=== PATIENT | female | born 2005 | race Caucasian/White ===

== ENCOUNTER 2024-01-14 23:56 | Emergency (ER) | payer OTHER, SELFPAY ==
[2024-01-15 00:20] VITALS: BP 127/80
[2024-01-15 01:44] VITALS: BP 119/70
--- NOTE | 2024-01-15 02:19 | ED.GENMED ---
History of Present Illness
General
Chief Complaint: Abdominal Pain
Source: patient
Exam Limitations: none
Time Seen by Provider: 01/15/24 01:56
Travel History
Have you had any contact with someone who has COVID-19?: No
Do you have any symptoms of coronavirus? Fever > 100 degrees, chills, cough, shortness of breath, sore throat, loss of taste or smell, muscle aches, or headache?: No
History of Present Illness
History of Present Illness:
See MDM
Past History
Past History
ED Past Medical History: None
ED Past Surgical History: None
Social History
Tobacco: Non-smoker
Alcohol: None
Phy Exam
Physical Exam
Physical Exam:
See MDM
Course
Vital Signs
Initial and Last Documented VS:
Initial Vital Signs
Temp Pulse Resp BP Pulse Ox
98.8 F 63 18 127/80 99
01/15/24 00:20 01/15/24 00:20 01/15/24 00:20 01/15/24 00:20 01/15/24 00:20
Last Documented Vital Signs
Temp Pulse Resp BP Pulse Ox
98.8 F 66 18 119/70 99
01/15/24 00:20 01/15/24 01:44 01/15/24 00:20 01/15/24 01:44 01/15/24 01:44
MDM/Problems Addressed
Differential Diagnosis Includes:
HPI and MDM Narrative:
18-year-old female presenting with resolving upper abdominal pain. This occurred soon after eating fast food. Patient does acknowledge that this has been an ongoing issue after she eats. On my evaluation, patient feeling better. She denies a
history of gastritis or alcohol abuse. I did discuss with the patient that it would be beneficial to obtain basic blood work, urine and right upper quadrant ultrasound. Patient acknowledges this but states that she has to leave to catch
a flight.
Before patient left, I did a bedside ultrasound. She has multiple gallstones but no evidence of acute calculus cholecystitis. There is no pericholecystic fluid and no Aaron sign.
Although symptomatic cholelithiasis is the likely diagnosis, we discussed alternative diagnoses such as colitis versus pancreatitis versus gastritis etc. She understands this and feels comfortable going home. We discussed outpatient surgical
evaluation
Physical exam
General: Well appearing and non-toxic
HEENT: protecting airway
Neck: appears supple
CV: No evidence of cyanosis
Resp: No accessory muscle use
Abd: Non-distended. Mild right upper quadrant tenderness. No rebound
Extremities: No deformities
Neuro: alert
Psych: Normal affect
Skin: Intact
Problems Addressed including Acute and Chronic Conditions affecting care:
1. Symptomatic cholelithiasis
Acuity: acute
Prognosis: stable
Details: No evidence of acute cholecystitis from bedside ultrasound. We discussed outpatient surgical evaluation and discussed avoiding large fatty meals
Differential Diagnosis (but not limited to): Symptomatic cholelithiasis, acute cholecystitis, pancreatitis, gastritis,
Testing considered: Blood work and official right upper quadrant ultrasound
Drug therapy (if applicable): OTC meds, please see d/c instruction regarding Rx drugs
Amount and/or Complexity of Data Reviewed
Clinical info obtained from: Patient
External data reviewed: N/A
Labs I independently reviewed (but not limited to): N/A
Radiology: N/A
Pulse Ox: not hypoxic
EKG independently reviewed: N/A
Assistant Controller: N/A
Critical Care: N/A
Risk of Complication:
Social Determinants of health: Good social support
Discussed with other providers: N/A
Escalation of Care includes Admit/Obs: After being observed in the Emergency Department, pt stable for discharge.
Occasional wrong word or 'sound a like' substitutions may have occurred due to the inherent limitations of voice recognition software. Read the chart carefully and recognize, using context, where substitutions have occurred.
*Critical Care Note
Total Time (30-74mins, 75-104mins- exclusive of procedures): Not Applicable
ED Attending Note
-
Portions of this chart may have been created with voice recognition software.� Occasional wrong word or��sound alike� substitutions may have occurred due to the inherent limitations of voice recognition software.
Discharge Plan
Departure
Patient Disposition: Home (Routine Discharge)
Date of Disposition: 01/15/24
Time of Disposition: 02:20
Patient with high blood pressure during this ER visit?: No
Discharge Problem:
Symptomatic cholelithiasis
Instructions: Gallstones ED
Referrals:
Fred Salinas MD [Active] -
UNKNOWN - PT DOES,NOT KNOW [Family Provider] -
Activity Restrictions/Additional Instructions:
As we discussed, your symptoms are likely related to the gallstones we saw on the bedside ultrasound. Currently, there is no ultrasound evidence that your gallbladder is infected. Please avoid large fatty foods. Your gallbladder should be
evaluated by a surgeon. If symptoms persist, you will likely need your gallbladder out.
Please return for any worsening symptoms.
You may return at any time if you have further concerns.
Please follow up with your doctor at the first available appointment, preferably this week.
Thank you for choosing [facility].
Interventions
Interventions:
*Risk Screen - Suicide Last Done: 01/15/24 01:27
*General Assessment Last Done: 01/15/24 01:27
*Neglect/Abuse Screening Last Done: 01/15/24 01:27
ED- Fall Risk Assessment Last Done: 01/15/24 01:27
MF-Uecrhe-Yngskjgast Assessment Last Done: 01/15/24 01:27
== END 2024-01-15 02:45 | disposition home or self-care (01) ==
LOC: EMR 23:56
PROVIDERS: EMERGENCY PHYSICIAN Student in an Organized Health Care Education/Training Program
DX: K80.20 Calculus of gallbladder without cholecystitis without obstruction (principal)
CPT/HCPCS: 99284

== ENCOUNTER 2024-09-19 19:42 | Emergency (ER) | payer OTHER, SELFPAY ==
[2024-09-19 19:59] LABS: % Basophils 0.6 % (0-2); % Eosinophils 6.1 % (0-6); % Immature Granulocytes 0.3 % (0-0.5); % Lymphocytes 44.4 % (20.5-51.1); % Monocytes 7.9 % (1.7-9.3); % Neutrophils 40.7 % (42.2-75.2); Absolute Basophils 0.1 10^3/uL (0-0.2); Absolute Eosinophils 0.6 10^3/uL (0-0.7); Absolute Lymphocytes 4.1 10^3/uL (1.2-3.4); Absolute Monocytes 0.7 10^3/uL (0.1-0.6); Absolute Neutrophils 3.8 10^3/uL (1.4-6.5); Hemoglobin 15.5 g/dL (12.0-16.0); Mean Corpuscular Hgb 30.8 pg (27.0-31.0); Mean Corpuscular Volume 85.5 fL (81.0-99.0); Mean Platelet Volume 9.8 fL (7.4-10.4); Nucleated Red Blood Cells % 0 %; Platelet Count 298 10^3/uL (130-400); Red Blood Cell Count 5.03 10^6/uL (4.20-5.40); Red Cell Dist. Width 12.2 % (11.5-14.5); White Blood Cell Count 9.3 10^3/uL (4.8-10.8)
[2024-09-19 20:19] LABS: HCG, Serum Qualitative Screen Negative
[2024-09-19 20:30] LABS: ALT (SGPT) 43 U/L (0-35); AST (SGOT) 46 U/L (14-36); Albumin 4.5 g/dl (3.5-5.0); Alkaline Phosphatase 62 U/L (38-126); Blood Urea Nitrogen 14 mg/dl (7-17); Calcium 10.1 mg/dl (8.4-10.2); Carbon Dioxide 25 mmol/L (22-30); Chloride 104 mmol/L (98-107); Glucose 96 mg/dl (70-99); Lipase 68 U/L (23-300); Potassium 4.8 mmol/L (3.5-5.1); Sodium 143 mmol/L (135-145); Total Bilirubin 0.2 mg/dl (0.2-1.3); Total Protein 7.2 g/dl (6.3-8.2); eGFR > 60.00
--- NOTE | 2024-09-19 20:56 | ED.GENMED ---
History of Present Illness
<Kristie Porter PA-C - Last Filed: 09/20/24 11:47>
General
Chief Complaint: Abdominal Pain
Source: patient
Time Seen by Provider: 09/19/24 20:41
History of Present Illness
History of Present Illness:
19yoF with a history of gallstones presenting with her significant other for evaluation of abdominal pain. She reports pain primarily in her epigastric region for the past 3 days. Pain is constant and is describes as a dull aching pain. Pain
radiates to the back and to the lower abdomen. She has tried Tylenol and heat without much improvement. Nothing seems to make the pain better or worse. Specifically, she denies any pain with eating. She is otherwise asymptomatic and denies any
fevers, chills, nausea, vomiting, diarrhea, vaginal bleeding, vaginal discharge. Of note, patient was seen in ED in January 2024 and she was diagnosed with gallstones. She has not followed up with general surgery. No previous abdominal surgeries. LMP
1 week ago.
Past History
<Kristie Porter PA-C - Last Filed: 09/20/24 11:47>
Past History
ED Past Medical History: None
ED Past Surgical History: None
Social History
Tobacco: Non-smoker
Alcohol: None
Phy Exam
<Kristie Porter PA-C - Last Filed: 09/20/24 11:47>
General Physical Exam
General Presentation: well appearing and no apparent distress
General age: appears stated age
General Skin: warm and dry
General Habitus: normal
General Mental: alert
ENT Exam
ENT Exam: normocephalic
Cardiovascular Exam
Cardiovascular Exam: regular rate/rhythm and no murmur
Pulmonary Exam
Pulmonary Exam: lungs clear, no respiratory distress, no rales, no crackles, no rhonchi and no wheezing
Gastrointestinal Exam
Gastrointestinal Exam: soft, non distended and other (+Generalized abdominal tenderness. No CVA tenderness bilaterally. Abdomen soft, non-distended. No rebound or guarding. Negative Aaron's sign.)
Neurological Exam
Neurological Exam: alert
Masha Coma Scale
Eye Opening: Spontaneous
Verbal Response: Oriented
Motor Response: Obeys Commands
GCS Total Score: 15
Skin Exam
Skin Exam: normal color and warm/dry
Psychiatric Exam
Psychiatric Exam: normal mood/affect
Course
<Kristie Porter PA-C - Last Filed: 09/20/24 11:47>
Orders/Labs/Results
Orders:
Orders
09/19/24 19:49
IV Insert/Care/Rem.- Treatment PRN
Test Result ONCE
09/19/24 19:52
US Abdomen Complete/Upper Urgent
Comment:
Reason For Exam: known gallstones upper abd. pain
09/19/24 19:53
Complete Blood Count/With Diff Urgent
Comprehensive Metabolic Panel Urgent
HCG, Serum Qualitative Screen Urgent
Comment: Notify provider if positive test present
Lipase Urgent
09/19/24 21:26
CT Abd/pelvis W Iv Cont Urgent
Comment:
Reason For Exam: Generalized abd pain
09/19/24 21:32
Ketorolac [Toradol] 15 mg IV NOW STA
Abnormal Lab Results
09/19/24
19:53
Absolute Lymphs (auto) 4.1 H 10^3/uL
(1.2-3.4)
Absolute Monos (auto) 0.7 H 10^3/uL
(0.1-0.6)
Neutrophils % 40.7 L %
(42.2-75.2)
Eosinophils % 6.1 H %
(0-6)
AST 46 H U/L
(14-36)
ALT 43 H U/L
(0-35)
09/19/24 19:53
09/19/24 19:53
Vital Signs
Initial and Last Documented VS:
Initial Vital Signs
Resp
18
09/19/24 21:49
Last Documented Vital Signs
Temp Pulse Resp BP Pulse Ox
98.5 F 81 18 126/80 97
09/19/24 22:32 09/19/24 22:32 09/19/24 22:32 09/19/24 22:32 09/19/24 22:32
<Juvencio Dozier, DO - Last Filed: 09/19/24 22:59>
Orders/Labs/Results
Orders:
Orders
09/19/24 19:49
IV Insert/Care/Rem.- Treatment PRN
Test Result ONCE
09/19/24 19:52
US Abdomen Complete/Upper Urgent
Comment:
Reason For Exam: known gallstones upper abd. pain
09/19/24 19:53
Complete Blood Count/With Diff Urgent
Comprehensive Metabolic Panel Urgent
HCG, Serum Qualitative Screen Urgent
Comment: Notify provider if positive test present
Lipase Urgent
09/19/24 21:26
CT Abd/pelvis W Iv Cont Urgent
Comment:
Reason For Exam: Generalized abd pain
09/19/24 21:32
Ketorolac [Toradol] 15 mg IV NOW STA
Abnormal Lab Results
09/19/24
19:53
Absolute Lymphs (auto) 4.1 H 10^3/uL
(1.2-3.4)
Absolute Monos (auto) 0.7 H 10^3/uL
(0.1-0.6)
Neutrophils % 40.7 L %
(42.2-75.2)
Eosinophils % 6.1 H %
(0-6)
AST 46 H U/L
(14-36)
ALT 43 H U/L
(0-35)
09/19/24 19:53
09/19/24 19:53
Vital Signs
Initial and Last Documented VS:
Initial Vital Signs
Resp
18
09/19/24 21:49
Last Documented Vital Signs
Temp Pulse Resp BP Pulse Ox
98.5 F 81 18 126/80 97
09/19/24 22:32 09/19/24 22:32 09/19/24 22:32 09/19/24 22:32 09/19/24 22:32
<Kristie Porter PA-C - Last Filed: 09/20/24 11:47>
MDM/Problems Addressed
MDM/Problems Addressed:
19yoF here with abd pain x 3 days. Epigastric pain radiating to back and lower abdomen. Known history of gallstones. No postprandial pain. VSS. She is well appearing in no distress. No signs of peritonitis on abdominal exam. Differential diagnosis
includes but is not limited to: cholecystitis, appendicitis, colitis, pancreatitis, gastritis, nonspecific abdominal pain
Initial ED plan: Abdominal labs and upper abdominal ultrasound ordered in triage. AST/ALT minimally elevated. Bilirubin normal. Remainder of labs unremarkable including normal white count and lipase. Ultrasound shows cholelithiasis without signs of
cholecystitis as well as fatty liver. Presentation is not classic for biliary colic as patient is not related to eating. Given generalized abdominal tenderness on exam, will proceed with CT abdomen. Patient signed out to Dr. Dozier pending CT
results.
19-year-old female with upper abdominal pain and right side abdominal pain. No signs of cholecystitis or appendicitis. Patient stable for discharge.
<Juvencio Dozier DO - Last Filed: 09/19/24 22:59>
MDM/Problems Addressed
Differential Diagnosis Includes:
Cholecystitis, appendicitis
MDM/Problems Addressed:
19-year-old female with upper abdominal pain and right side abdominal pain. No signs of cholecystitis or appendicitis. Patient stable for discharge.
<DO Chuck Castanon Last Filed: 09/19/24 22:59>
*Radiology
Radiology exam reviewed: radiology read reviewed (CT abdomen pelvis no acute findings, ultrasound shows fatty liver and cholelithiasis)
*Pulse Oximetry
Patient hypoxic: no
*Critical Care Note
Total Time (30-74mins, 75-104mins- exclusive of procedures): Not Applicable
<DO Chuck Castanon Last Filed: 09/19/24 22:59>
Patient Management
Social determinants of health affecting care: Living situation
Escalation/DeEscalation of care consider admission/obs:
Admit not indicated
ED Attending Note
<Kristie Porter PA-C - Last Filed: 09/20/24 11:47>
-
Portions of this chart may have been created with voice recognition software.� Occasional wrong word or��sound alike� substitutions may have occurred due to the inherent limitations of voice recognition software.
<Juvencio Dozier DO - Last Filed: 09/19/24 22:59>
ED Attending Note
Patient seen and examined by attending physician: Yes
ED Attending Note:
I have reviewed and agree with history and treatment plan by Kristie Porter PA-C. My exam revealed 19-year-old female no acute distress. Stable for discharge and general surgery follow-up.
Discharge Plan
Departure
Patient Disposition: Home (Routine Discharge)
Date of Disposition: 09/19/24
Time of Disposition: 22:56
Patient with high blood pressure during this ER visit?: Yes
Condition: Good
Discharge Problem:
Abdominal pain, Cholelithiasis, Fatty infiltration of liver
Instructions: Metabolic dysfunction-associated steatotic liver disease, Gallstones (DC), Abdominal Pain
Referrals:
Yazan Escalera MD [Active] - Call in 1-3 days for appt
UNKNOWN - PT DOES,NOT KNOW [Family Provider] -
Interventions
Interventions:
*Risk Screen - Suicide Last Done: 09/19/24 19:44
*General Assessment Last Done: 09/19/24 23:38
*Neglect/Abuse Screening Last Done: 09/19/24 19:48
*ED COVID-19 Vaccine History Last Done: 09/19/24 19:48
*Nursing Disposition Last Done: 09/19/24 23:38
OD-Ihkdbc-Cqkxgxfulw Assessment Last Done: 09/19/24 21:47
Discharge Date and Time
Discharge Date/Time: 09/19/24 23:40
Print Language: J[place]
[2024-09-19] MEDS: TORADOL 15 MG IV (21:44)
[2024-09-19 22:32] VITALS: BP 126/80
== END 2024-09-19 23:40 | disposition home or self-care (01) ==
LOC: EMR 19:42
PROVIDERS: Emergency Medicine; EMERGENCY PHYSICIAN Emergency Medicine
DX: R10.9 Unspecified abdominal pain (principal); K76.0 Fatty (change of) liver, not elsewhere classified; K80.20 Calculus of gallbladder without cholecystitis without obstruction
CPT/HCPCS: 99285; 96374; 74177; 76700; 80053; 83690; 84703; 85025; Q9967

== ENCOUNTER 2024-11-16 06:26 | Day surgery (SDC) | payer OTHER, SELFPAY ==
[2024-11-16] VITALS (10 sets, daily range): BP systolic 124–154; BP diastolic 88–100; BMI 36.1
--- NOTE | 2024-11-16 10:19 | W.SUR.PREOP ---
Pre-Operative Surgical Note
-
I have examined this patient prior to the performance of the scheduled procedure.
The patient's condition is unchanged from the time of the current History and
Physical and the patient is able to undergo the scheduled procedure.
--- NOTE | 2024-11-16 10:19 | HP.FOC2 ---
Focused History & Physical
Chief Complaint
HPI:
Chief Complaint: Biliary colic
HPI / Indication for Planned Procedure: This is a 19-year-old female who presents with classic biliary colic symptoms. Will plan for a laparoscopic cholecystectomy with cholangiogram.
Relevant Past Medical History: Negative
Relevant Social History: Negative
Relevant Family History: Negative
Relevant Past Surgical History: Negative
Review of Systems
Review of Pertinent Systems: All Systems Negative
Medication
See Medication form for detailed medications: Yes
Medication List (including Herbals & OTC):
acetaminophen 500 mg tablet (Tylenol Extra Strength) 500 mg PO Q6H PRN pain 11/02/24
montelukast 10 mg tablet 10 mg PO DAILY PRN allergies 11/02/24
norgestimate-ethinyl estradiol 0.18 mg/0.215mg/0.25mg-35 mcg(28)tablet 1 tab PO DAILY 11/02/24
sertraline 100 mg tablet 100 mg PO DAILY 11/02/24
Medications Reviewed: Yes
Allergies and Reactions
Patient has Allergies: Yes
Noted Allergies and Reactions:
Allergy/AdvReac Type Severity Reaction Status Date / Time
Penicillins Allergy Rash Verified 11/16/24 10:14
Pertinent Physical Exam
All Other Systems: Negative
Head/Neck: Normal
Diagnosis / Assessment
This is a 19-year-old female with morbid obesity who presents with biliary colic
Plan / Procedure
Will plan for a laparoscopic cholecystectomy with cholangiogram.
Anesthesia/Sedation to be done by Anesthesia Provider: Yes
[2024-11-16] MEDS: TYLENOL 1000 MG PO (10:31)
[2024-11-16] MEDS: NORMOSOL-R/PLASMALYTE-A 1000 IV (10:32)
--- NOTE | 2024-11-16 12:31 | W.IMMPOSTOP ---
Surgical Immed Post Op Note
-
Primary Surgeon: Fred Salinas MD
Assisting Surgeon: None
Pre-op Diagnosis: Biliary colic
Post-op Diagnosis: Same
Procedure Performed: Laparoscopic cholecystectomy with cholangiogram
Anesthesia Type: General
Specimen / Cultures: Gallbladder and contents
Estimated Blood Loss: 7 cc
Complications: None
Operative Findings: Fairly normal-appearing gallbladder, 0.5 cm gallstone noted wedged in the cystic duct crushed and taken out in pieces. Critical view of safety obtained prior to a cholangiogram which demonstrated normal biliary anatomy and no
distal filling defects with free flow of contrast into the duodenum. Duct ligated with a 5 mm titanium clip followed by 0 PDS Endoloop.
--- NOTE | 2024-11-16 12:42 | OR.RPT ---
Operative Report
Operative Report
Patient Name: Erin Melton
: 2005
Date of Operation: 11/16/2024
Preoperative Diagnosis: Symptomatic Cholelithiasis
Postoperative Diagnosis: Same
Procedure(s):
Laparoscopic Cholecystectomy with Cholangiogram
Surgeon(s):
Dr. Salinas
Bell Tier(s):
Javier Kenny MD (PGY 1)
Anesthesia: General
Estimated Blood Loss: 7 cc
Urine Output: None
Drains/Lines/Implants: None
Specimens:
1. Gallbladder and contents
HPI/Surgical Indications:
This is a 19-year-old female who presents with abdominal pain. Exam, labs and imaging are consistent with symptomatic cholelithiasis. Risks/Benefits/Alternatives were discussed at length, and the patient agreed to proceed with surgery.
Operative Findings: Fairly normal-appearing gallbladder, 0.5 cm gallstone noted wedged in the cystic duct crushed and taken out in pieces. Critical view of safety obtained prior to a cholangiogram which demonstrated normal biliary anatomy and no
distal filling defects with free flow of contrast into the duodenum. Duct ligated with a 5 mm titanium clip followed by 0 PDS Endoloop.
Procedure Description:
The patient was brought to the Operating Room and placed in the supine position. IV antibiotics were infused and sequential compression devices were confirmed to be on. Following uneventful induction of general endotracheal anesthesia, an
orogastric tube was placed. The abdomen was prepped and draped in the usual sterile fashion. The abdomen was entered using a left subcostal Veress technique followed by a right upper quadrant 5 mm Optiview trochar. Pneumoperitoneum to 15 mmHg
pressure was obtained without difficulty and we confirmed that no injury had occurred during our entry. The patient was positioned in reverse trendelenberg and rotated with the right side up slightly. Two 5mm trocars were then placed along the right
subcostal margin. A locking grasping forceps was placed on the fundus of the gallbladder where it was then retracted cephalad and to the right. Using appropriate grasping instruments, the peritoneum overlying the triangle of Calot was incised. The
cystic duct/gallbladder junction was identified, dissected circumferentially. The cystic artery was identified medially and was dissected circumferentially. Two clips were placed proximally and one distally on the cystic artery, and the artery was
divided. A critical view was obtained. A clip was then placed on the cystic duct/gallbladder junction and a ductotomy was made. A gallstone could be palpated and seen lodged in the cystic duct. The duct was filleted open more to free the stone.
An additional smaller stone was also then milked out of the duct followed by free flow of bile. An intraoperative cholangiogram was then performed using fluoroscopy, which showed good flow of dye into the duodenum. There were no intra- or
extrahepatic bile duct filling defects. The biliary anatomy appeared normal. Following completion of the cholangiogram, the catheter was removed. Two clips were then placed proximally on the cystic duct and the duct divided. The cystic duct stump
was reinforced with a 0 PDS Endoloop. Remaining soft tissue attachments of the gallbladder to the liver bed were then divided using electrocautery. There was no spillage of bile or stones. The gallbladder bed was inspected and excellent
hemostasis was obtained. The gallbladder was extracted through the 12 mm trocar site using an endocatch bag. The abdomen was again irrigated and excellent hemostasis was assured. All remaining trocars were then removed and the pneumoperitoneum was
evacuated. The 12 mm trocar site was closed using a figure of 8 of 0 PDS. All trocar sites were closed at the skin level using 4-0 Monocryl followed by Dermabond. Overall, the patient tolerated the procedure well and was taken to the Recovery
Room postoperatively in stable condition.
I was the attending physician and performed the procedure with assistance from the resident above. I was present for all portions of the case, including skin closure.
Fred Salinas MD
[2024-11-16] MEDS: DILAUDID 0.5 MG IV ×2 (12:50→13:11)
== END 2024-11-16 14:23 | disposition home or self-care (01) ==
LOC: SDS 06:26
PROVIDERS: ATTENDING PHYSICIAN Surgery
DX: K80.10 Calculus of gallbladder with chronic cholecystitis without obstruction (principal)
CPT/HCPCS: 47563; 88304; 74300; 76000